=== PATIENT | male | born 1990 | race African-American/Black ===

== ENCOUNTER 2020-01-15 23:10 | Emergency (ER) | payer SELFPAY ==
[~2020-01-15] VITALS: Ht 177.8 cm; Wt 104.0 kg
[2020-01-16 01:05] VITALS: BP 146/89
== END 2020-01-16 01:06 | disposition home or self-care (01) ==
LOC: ER 23:10
DX: J45.909 Unspecified asthma, uncomplicated (principal); I49.9 Cardiac arrhythmia, unspecified
CPT/HCPCS: 99281; 99283